=== PATIENT | female | born 1960 | race Caucasian/White ===

== ENCOUNTER 2021-09-09 12:22 | Outpatient (CLI) | payer OTHER ==
--- NOTE | 2021-09-09 14:05 | XRAY Report ---
PROCEDURE: Foot 3 View LT INDICATIONS: FOOT PAIN TECHNIQUE: 3 views of the foot were acquired. COMPARISON: Report of left foot x-ray, 10/26/2011 (images not available). FINDINGS: Bones: No fractures or dislocations. No suspicious bony lesions. Mild osteoarthritic changes at ta lonavicular joint, first metatarsophalangeal joint and multiple interphalangeal joints. There is brenda articular bony erosion at the fifth metatarsal head. Soft tissues: No tibiotalar joint effusion. Achilles tendon appears normal. Mild bunion and bunione tte. IMPRESSION: 1. Mild osteoarthritic changes. 2. Periarticular bony erosion at the fifth metatarsal head suggesting inflammatory arthritis such as erosive OA or gout. Recommend clinical correlation. 3. Mild bunion and bunionette. Reviewed by: Daria Hilario MD on 09/09/2021 2:04 PM PDT Approved by: Daria Hilario MD on 09/09/2021 2:04 PM PDT Station ID: [id number]
== END 2021-09-09 12:23 | disposition home or self-care (01) ==
LOC: DI 12:22
PROVIDERS: ATTEND Podiatrist
DX: M19.072 Primary osteoarthritis, left ankle and foot (principal); M85.872 Other specified disorders of bone density and structure, left ankle and foot; M21.612 Bunion of left foot

== ENCOUNTER 2021-12-14 13:59 | Outpatient (CLI) | payer OTHER ==
--- NOTE | 2021-12-15 10:35 | Mammography Report ---
BILATERAL DIGITAL SCREENING MAMMOGRAM 3D/2D: 12/14/2021 CLINICAL: Routine screening. Family history of breast cancer. Comparison is made to exams dated: 03/07/2016 mammogram, 06/10/2013 mammogram, and 03/08/2012 mammogr am - [facility]. There are scattered areas of fibroglandular density in both breasts (category b / 25%-50% glandular t issue). No significant masses, calcifications, or other findings are seen in either breast. There has been no significant interval change. IMPRESSION: NEGATIVE There is no mammographic evidence of malignancy. A 1 year screening mammogram is recommended. Based on the Tyrer Cuzick model (a risk assessment model) the patients lifetime risk is 5.8% and her 10 year risk is 2.3%. According to the ACR, ACS, and NCCN guidelines, an annual breast MRI exam vale g with mammogram is recommended if the patients lifetime risk is 20% or greater. This exam was interpreted at Station ID: [id number]. NOTE: For mammograms, a report in lay terms will be sent to the patient. Approximately 15% of breast malignancies will not be visualized mammographically. In the management of a palpable breast mass, a negative mammogram must not discourage biopsy of a clinically suspicious lesion. Electronically Signed By: Vin Felton M.D., jr/tejinder:12/14/2021 15:48:29 ACR BI-RADS Category 1: Negative 3341F PARENCHYMAL PATTERN: (A) - The breast(s) demonstrate(s) scattered fibroglandular densities. BI-RADS CATEGORY: (1) - 1 RECOMMENDATION: (ANNUAL) - Recommend routine annual screening mammography. [id number] 1 year screening LATERALITY: (B)
== END 2021-12-14 14:00 | disposition home or self-care (01) ==
LOC: DI.S 13:59
PROVIDERS: ATTEND Nurse Practitioner Family
DX: Z12.31 Encounter for screening mammogram for malignant neoplasm of breast (principal); Z80.3 Family history of malignant neoplasm of breast